=== PATIENT | female | born 1985 | race Caucasian/White ===

== ENCOUNTER 2016-08-06 05:39 | Inpatient (IN) | payer BC ==
[~2016-08-06] VITALS: Ht 157.5 cm; Wt 90.5 kg
[2016-08-06] VITALS (9 sets, daily range): BP systolic 102–121; BP diastolic 54–78
[~2016-08-06 05:39] MED LIST: IRON325 MG PO; PERCOCET 5/31 TABLET PO; PRENATAL TABLE1 EAC3 PO; ZANTAC150 MG PO; ZOFRAN4 MG PO
[2016-08-06] MEDS ORDERED: PRILOSEC OTC20 MG PO (06:35)
[2016-08-06] MEDS ORDERED: ENDOCET 5-3251 EACH PO (08:44)
[2016-08-06] MEDS ORDERED: IBUPROFEN800 MG PO (08:44)
[2016-08-07] VITALS (9 sets, daily range): BP systolic 107–153; BP diastolic 58–81
[2016-08-07 06:21] LABS: EOSINOPHIL (%) 0.3 % (0-5); HEMATOCRIT 23.5 % (36.0-46.0); IMMATURE GRANULOCYTE (%) 0.4 % (0.0-0.7); INSTRUMENT ABS NEUTROPHIL CT 6.6 K/uL; LYMPHOCYTE COUNT 1.9 K/uL (1.0-2.8); MCH 24.8 PG (29.0-34.0); MCHC 30.6 G/DL (30.0-36.0); MEAN PLAT.VOLUME 11.9 uM^3 (9.5-12.4); MONOCYTE (%) 7.6 % (3-12); MONOCYTE COUNT 0.7 K/uL (0-0.8); NEUTROPHIL (%) 70.8 % (45-76); NEUTROPHIL COUNT 6.6 K/uL (1.8-6.4); PLATELET COUNT 133 K/uL (156-360); RBC DIS.WIDTH-CV 14.8 % (11.8-14.6); RBC DIS.WIDTH-SD 43.7 % (39-53); WHITE BLOOD COUNT 9.3 K/uL (4.1-10.2)
[2016-08-07 11:34] LABS: HEMATOCRIT 23.8 % (36.0-46.0); MCV 81.2 FL (83-99)
[2016-08-07 15:48] LABS: HEMATOCRIT 22.4 % (36.0-46.0); MCV 80.9 FL (83-99)
[2016-08-07 21:55] LABS: HEMATOCRIT 25.5 % (36.0-46.0); MCV 80.4 FL (83-99)
[2016-08-08 03:20] VITALS: BP 112/71
[2016-08-08 08:03] VITALS: BP 109/67
[2016-08-08 10:45] VITALS: BP 117/71
[2016-08-08 15:14] VITALS: BP 111/71
[2016-08-08 22:30] VITALS: BP 124/63
[2016-08-09 07:18] VITALS: BP 100/58
[2016-08-09] MEDS ORDERED: DOCUSATE SODIU100 MG PO (11:00)
== END 2016-08-09 13:29 | disposition home or self-care (01) | DRG 765 ==
LOC: 2WEST 05:39 → 2SOUTH 11:50 → 2WEST 08-09 13:29
PROVIDERS: Midwife; Obstetrics & Gynecology
PROC: 10D00Z1 Extraction of Products of Conception, Low, Open Approach (ICD-10-PCS; principal; 2016-08-06)
DX: O34.211 Maternal care for low transverse scar from previous cesarean delivery (principal); D62 Acute posthemorrhagic anemia; Z3A.39 39 weeks gestation of pregnancy; Z37.0 Single live birth; E66.9 Obesity, unspecified; Z68.31 Body mass index [BMI] 31.0-31.9, adult; O99.214 Obesity complicating childbirth; O99.02 Anemia complicating childbirth; D50.9 Iron deficiency anemia, unspecified
CPT/HCPCS: 36415; 85014; 85018; 85025; 86900; 86901; J0690; J1100; J1170; J2270; J2274; J2405; J7030; J7120